=== PATIENT | male | born 1955 | race Caucasian/White ===

== ENCOUNTER 2016-11-05 10:02 | Outpatient (CLI) | payer MEDICAID | END 2016-11-05 10:03 | disposition home or self-care (01) | DX: M35.3 Polymyalgia rheumatica (principal) ==

== ENCOUNTER 2016-11-15 10:34 | Outpatient (CLI) | payer MEDICAID | END 2016-11-15 10:35 | disposition home or self-care (01) | DX: M19.042 Primary osteoarthritis, left hand (principal); M19.041 Primary osteoarthritis, right hand; M17.0 Bilateral primary osteoarthritis of knee ==

== ENCOUNTER 2017-01-30 08:00 | Outpatient (CLI) | payer MEDICAID | END 2017-01-30 08:30 | DX: I10 Essential (primary) hypertension (principal) ==

== ENCOUNTER 2017-01-30 09:13 | Outpatient (CLI) | payer MEDICAID | END 2017-01-30 09:14 | disposition critical access hospital (66) | DX: R06.02 Shortness of breath (principal) | CPT/HCPCS: A0425; A0427 ==

== ENCOUNTER 2017-01-30 09:35 | Inpatient (IN) | payer MEDICAID ==
[2017-01-30] MEDS ORDERED: SODIUM CHLORIDE 0.9% 1,000 ML IV ONE ×2 (09:56→12:51)
[2017-01-30] MEDS ORDERED: IPRATROPIUM/ALBUTEROL 3 ML NEB INH STA (09:56)
[2017-01-30] MEDS ORDERED: KETOROLAC 60 MG/2 ML VIAL IVP STA (10:52)
[2017-01-30] MEDS ORDERED: KETOROLAC 30 MG/ML VIAL ONE (10:53)
[2017-01-30] MEDS ORDERED: PIPERACILLIN/TAZOBACTAM 3.375 GM in SODIUM CHLORIDE 0.9% MINIBAG 100 ML IV STA (12:09)
[2017-01-30] MEDS ORDERED: ALBUTEROL NEB 2.5 MG/3 ML INH PRN (13:50)
[2017-01-30] MEDS ORDERED: ONDANSETRON 4 MG/2 ML VIAL IVP PRN (13:50)
[2017-01-30] MEDS ORDERED: SODIUM CHLORIDE FLUSH 0.9% 10 ML SYRINGE IVP PRN (13:50)
[2017-01-30] MEDS ORDERED: IPRATROPIUM/ALBUTEROL 3 ML NEB INH PRN (13:50)
[2017-01-30] MEDS ORDERED: SODIUM CHLORIDE 0.9% 1,000 ML IV SCH (14:00)
[2017-01-30] MEDS: FAMOTIDINE 20 MG TABLET PO SCH ×2 (15:14→20:20)
[2017-01-30] MEDS: LINEZOLID 600 MG/300 ML 300 ML IV SCH (15:14)
[2017-01-30] MEDS: SODIUM CHLORIDE FLUSH 0.9% 10 ML SYRINGE IVP SCH ×2 (15:15→21:04)
[2017-01-30] MEDS: PIPERACILLIN/TAZOBACTAM 4.5 GM in SODIUM CHLORIDE 0.9% MINIBAG 100 ML IV SCH ×2 (15:15→22:58)
[2017-01-30] MEDS ORDERED: ZOLPIDEM 5 MG TABLET PO PRN (16:21)
[2017-01-30] MEDS: HYDROcod/ACETAM 5/325 MG TABLET PO PRN ×2 (16:50→21:27)
[2017-01-30] MEDS: SACCHAROMYCES BOULARDII 250 MG CAPSULE PO SCH (17:16)
[2017-01-30] MEDS: MYCOPHENOLATE MOFETIL 250 MG CAPSULE PO SCH (20:20)
[2017-01-30] MEDS: GABAPENTIN 400 MG CAPSULE PO SCH (21:04)
[2017-01-30] MEDS ORDERED: MORPHINE 2 MG/ML SYRINGE IVP SCH (23:02)
[2017-01-30] MEDS: ACETAMINOPHEN 325 MG TABLET PO PRN (23:13)
[2017-01-31] MEDS: MORPHINE 2 MG/ML SYRINGE ONE ×2 (00:08→00:19)
[2017-01-31] MEDS ORDERED: FUROSEMIDE 40 MG/4 ML VIAL IVP STA (00:27)
[2017-01-31] MEDS: methylPREDNISolone SUCCINATE 125 MG/2 ML VIAL IVP SCH ×2 (00:49→05:25)
[2017-01-31] MEDS ORDERED: SODIUM CHLORIDE INHALATION 3 ML NEB INH PRN (00:53)
[2017-01-31] MEDS ORDERED: LEVALBUTEROL 1.25 MG INH PRN ×2 (00:53→08:53)
[2017-01-31] MEDS: LINEZOLID 600 MG/300 ML 300 ML IV SCH (02:29)
[2017-01-31] MEDS: HYDROcod/ACETAM 5/325 MG TABLET PO PRN ×2 (04:07→08:07)
[2017-01-31] MEDS: ACETAMINOPHEN 325 MG TABLET PO PRN (04:07)
[2017-01-31] MEDS: MAGNESIUM OXIDE 400 MG TABLET PO SCH ×2 (05:27→10:05)
[2017-01-31] MEDS: GABAPENTIN 400 MG CAPSULE PO SCH (05:27)
[2017-01-31] MEDS: SODIUM CHLORIDE FLUSH 0.9% 10 ML SYRINGE IVP SCH (05:32)
[2017-01-31] MEDS: PIPERACILLIN/TAZOBACTAM 4.5 GM in SODIUM CHLORIDE 0.9% MINIBAG 100 ML IV SCH (08:06)
[2017-01-31] MEDS: SACCHAROMYCES BOULARDII 250 MG CAPSULE PO SCH (08:06)
[2017-01-31] MEDS: FAMOTIDINE 20 MG TABLET PO SCH (08:07)
[2017-01-31] MEDS: MYCOPHENOLATE MOFETIL 250 MG CAPSULE PO SCH (08:07)
[2017-01-31] MEDS ORDERED: ENOXAPARIN 40 MG/0.4 ML SYRINGE SUBQ SCH (09:00)
[2017-01-31] MEDS ORDERED: PROPOFOL 1000 MG/100 ML 100 ML IV ONE (10:30)
[2017-01-31] MEDS: MIDAZOLAM 2 MG/2 ML VIAL IVP PRN ×2 (11:41→12:10)
[2017-01-31] MEDS ORDERED: MORPHINE 2 MG/ML SYRINGE ONE (11:59)
[2017-01-31] MEDS ORDERED: PANTOPRAZOLE 40 MG VIAL IVP SCH (12:00)
[2017-01-31] MEDS ORDERED: PROPOFOL 1000 MG/100 ML 100 ML IV SCH (12:00)
[2017-01-31] MEDS ORDERED: PROPOFOL 1000 MG/100 ML IV ONE (12:30)
[2017-01-31] MEDS ORDERED: SUCCINYLCHOLINE 200 MG/10 ML VIAL IVP ONE (12:30)
[2017-01-31] MEDS ORDERED: MORPHINE 2 MG/ML SYRINGE IVP ONE (12:30)
[2017-01-31] MEDS ORDERED: LIDOCAINE-MPF 2% 5 ML VIAL IM ONE (12:30)
[2017-01-31] MEDS ORDERED: ROCURONIUM 50 MG/5 ML VIAL IVP ONE (12:30)
[2017-01-31] MEDS ORDERED: CHLORHEXIDINE GLUCONATE 15 ML UDC PO SCH (21:00)
== END 2017-01-31 13:00 | disposition short-term general hospital (02) | DRG 208 ==
PROC: 0BH17EZ Insertion of Endotracheal Airway into Trachea, Via Natural or Artificial Opening (ICD-10-PCS; principal; 2017-01-31)
PROC: 5A1935Z Respiratory Ventilation, Less than 24 Consecutive Hours (ICD-10-PCS; principal; 2017-01-31)
DX: J96.00 Acute respiratory failure, unspecified whether with hypoxia or hypercapnia (principal); J18.9 Pneumonia, unspecified organism; J44.9 Chronic obstructive pulmonary disease, unspecified; M05.10 Rheumatoid lung disease with rheumatoid arthritis of unspecified site; I10 Essential (primary) hypertension; M19.90 Unspecified osteoarthritis, unspecified site; G89.29 Other chronic pain; M54.9 Dorsalgia, unspecified; Z87.891 Personal history of nicotine dependence; Z79.52 Long term (current) use of systemic steroids; Z79.899 Other long term (current) drug therapy